=== PATIENT | male | born 1955 | race Caucasian/White ===

== ENCOUNTER 2022-03-03 13:55 | Emergency (ER) | payer MEDICARE, BC ==
[~2022-03-03] VITALS: Ht 172.7 cm; Wt 95.5 kg
[2022-03-03 13:58] VITALS: BP 135/86
[2022-03-03] MEDS ORDERED: proparacaine 0.5% ophthalmic drops 15ml EACHEYE ONE (14:10)
[2022-03-03] MEDS ORDERED: gentamicin 0.3% ophthalmic drops 5ML LEFTEYE ONE (14:20)
== END 2022-03-03 14:30 | disposition home or self-care (01) ==
LOC: ER 13:55
DX: T15.02XA Foreign body in cornea, left eye, initial encounter (principal); X58.XXXA Exposure to other specified factors, initial encounter; Y93.89 Activity, other specified; Y92.89 Other specified places as the place of occurrence of the external cause; Y99.8 Other external cause status
CPT/HCPCS: 65220; 99284